=== PATIENT | female | born 1930 | race Two or more races ===

== ENCOUNTER → 2017-03-14 | Outpatient (REF) | payer MEDICARE, OTHER | LOC: M SMT 16:54 | PROVIDERS: ATTEND Nurse Practitioner Women's Health | DX: N39.41 Urge incontinence (principal) | CPT/HCPCS: 81001; 87086; G0463 ==

== ENCOUNTER → 2017-04-15 | Outpatient (REF) | payer MEDICARE ==
[~2017-04-15] MED LIST: AMLO10TA2 PO; BIOT1CAP2 PO; BREO1INH3 INH; CIPR500T3 PO; CURCPOW XX; MILKPOW XX; VITA200015 PO; VITA200016 PO
== END ==
LOC: M SMT 17:11
PROVIDERS: ATTEND Urology
DX: N39.41 Urge incontinence (principal)

== ENCOUNTER → 2017-04-30 | Day surgery (SDC) | payer MEDICARE ==
[~2017-04-30] VITALS: Ht 162.6 cm; Wt 77.1 kg
[~2017-04-30] MED LIST changes: +BOTULINUM INJ 100 UNITS (J0585) As Ordered ONE; +LIDOCAINE 1% MDV 20ML VIAL SC ONE; +LIDOCAINE 2% INJ 100 MG/5 ML SDV (FOR ANES.) As Ordered ONE; +LR 1,000 ML IV ONE; +LR 1,000 ML IV SCH; +MIDAZOLAM INJ 2 MG/2 ML VIAL (J2250) As Ordered ONE; +ONDANSETRON 4MG/2ML VIAL (J2405) As Ordered ONE; +ONDANSETRON 4MG/2ML VIAL (J2405) IV PRN; +PROPOFOL 200 MG/20 ML VIAL As Ordered ONE; +dexameTHASONE 4 MG/ML 1ML VIAL (J1100) As Ordered ONE; +fentaNYL 100 MCG/2 ML INJECTION (J3010) As Ordered ONE; +fentaNYL 100 MCG/2 ML INJECTION (J3010) IV PRN
[2017-04-30 06:58] LABS: INR 0.98
[2017-04-30 09:25] VITALS: BP 170/77
--- NOTE | 2017-05-01 07:35 | RO ---
DATE OF PROCEDURE: 04/30/2017 PREOPERATIVE DIAGNOSIS: Bladder hyperactivity. POSTOPERATIVE DIAGNOSIS: Bladder hyperactivity. PROCEDURE: Cystoscopy, plus 100 units of Botox injection intravesical. SURGEON: Dr. Home Rodriguez [employer]IA PROGRAM DIRECTOR: None. ANESTHESIA: General. COMPLICATIONS: None. ESTIMATED BLOOD LOSS: N/A. HISTORY OF PRESENT ILLNESS: This is an 87-year-old female patient that actually is here due to severe urgency and frequency, bladder hyperactivity. For this reason, she has consented for cystoscopy plus 100 international units of Botox injection in the bladder. PROCEDURE DESCRIPTION: In a patient under general anesthesia in supine modified low lithotomy position, after prepping and draping the area of concern which included the entire genitalia and abdomen, we started by introducing a re Italian cystoscope with a 30 degrees lens under videoscopic guidance. The urethra and bladder neck were totally normal. The ureteral orifices were excreting clear urine. The bladder had no tumors, no stones, no foreign objects. We then proceeded to pass a Laborie endoscopic needle and then place a syringe filled with 100 units of Botox solution. We injected 1 mL of the Botox solution into the posterior bladder wall on the left and the right and also in the dome on the left and the right in lateral munoz. Once we finished injecting, we actually took out the endoscopic needle and drained the bladder and then took the cystoscope out. PLAN: The patient will go home with antibiotics for 7 days and pain medication Tylenol as needed over the counter. She will followup at [facility] in about 3-4 weeks and we can reschedule her for another Botox injection depending on how she does with this one either with 100 or with 200 units of Botox every 6 months.
== END | disposition home or self-care (01) ==
LOC: M SDC 06:13
PROVIDERS: ATTEND Urology
DX: N32.81 Overactive bladder (principal); N39.46 Mixed incontinence; I10 Essential (primary) hypertension; L30.9 Dermatitis, unspecified; J44.9 Chronic obstructive pulmonary disease, unspecified; R06.02 Shortness of breath; Z79.899 Other long term (current) drug therapy; Z78.0 Asymptomatic menopausal state; Z92.3 Personal history of irradiation
CPT/HCPCS: 36415; 52287; 85610; 85730; 86850; 86900; 86901; J0585; J0690; J1100; J2250; J2405; J3010

== ENCOUNTER → 2017-05-16 | Outpatient (REF) | payer MEDICARE ==
[~2017-05-16] MED LIST changes: -BOTULINUM INJ 100 UNITS (J0585) As Ordered ONE; -LIDOCAINE 1% MDV 20ML VIAL SC ONE; -LIDOCAINE 2% INJ 100 MG/5 ML SDV (FOR ANES.) As Ordered ONE; -LR 1,000 ML IV ONE; -LR 1,000 ML IV SCH; -MIDAZOLAM INJ 2 MG/2 ML VIAL (J2250) As Ordered ONE; -ONDANSETRON 4MG/2ML VIAL (J2405) As Ordered ONE; -ONDANSETRON 4MG/2ML VIAL (J2405) IV PRN; -PROPOFOL 200 MG/20 ML VIAL As Ordered ONE; -dexameTHASONE 4 MG/ML 1ML VIAL (J1100) As Ordered ONE; -fentaNYL 100 MCG/2 ML INJECTION (J3010) As Ordered ONE; -fentaNYL 100 MCG/2 ML INJECTION (J3010) IV PRN
== END ==
LOC: M SMT 12:46
PROVIDERS: ATTEND Nurse Practitioner Women's Health
DX: N39.41 Urge incontinence (principal)
CPT/HCPCS: 81001; 87086; G0463

== ENCOUNTER 2018-03-11 07:14 | Day surgery (SDC) | payer MEDICARE ==
[~2018-03-11 07:14] MED LIST changes: -AMLO10TA2 PO; -BIOT1CAP2 PO; -BREO1INH3 INH; -CIPR500T3 PO; -CURCPOW XX; +MIDAZOLAM INJ 2 MG/2 ML VIAL (J2250) As Ordered; -MILKPOW XX; -VITA200015 PO; -VITA200016 PO; +fentaNYL 100 MCG/2 ML INJECTION (J3010) As Ordered
[2018-03-11] MEDS ORDERED: BOTULINUM INJ 100 UNITS (J0585) XX (07:30)
[2018-03-11] MEDS ORDERED: LIDOCAINE 1% MDV 20ML VIAL SQ (07:30)
[2018-03-11] MEDS ORDERED: LR 1,000 ML IV (07:30)
[2018-03-11] MEDS ORDERED: LIDOCAINE 2% INJ 100 MG/5 ML SDV (FOR ANES.) As Ordered (07:47)
[2018-03-11] MEDS ORDERED: PROPOFOL 200 MG/20 ML VIAL As Ordered (07:47)
[2018-03-11] MEDS ORDERED: ONDANSETRON 4MG/2ML VIAL (J2405) As Ordered (08:40)
[2018-03-11] MEDS: BOTULINUM INJ 100 UNITS (J0585) As Ordered (08:45)
== END 2018-03-11 10:03 | disposition home or self-care (01) ==
LOC: M SDC 07:14
DX: N32.81 Overactive bladder (principal); R35.0 Frequency of micturition; I10 Essential (primary) hypertension; J44.9 Chronic obstructive pulmonary disease, unspecified; Z79.899 Other long term (current) drug therapy
CPT/HCPCS: 52287

== ENCOUNTER 2018-07-15 10:31 | Day surgery (SDC) | payer MEDICARE ==
[~2018-07-15 10:31] MED LIST changes: +BOTULINUM INJ 100 UNITS (J0585) XX; +LIDOCAINE 1% SDV 5 ML VIAL SQ; +LIDOCAINE 2% INJ 100 MG/5 ML SDV (FOR ANES.) As Ordered; +ONDANSETRON 4MG/2ML VIAL (J2405) As Ordered; +PROPOFOL 200 MG/20 ML VIAL As Ordered; +dexameTHASONE 4 MG/ML 1ML VIAL (J1100) As Ordered
[2018-07-15] MEDS: LR 1,000 ML IV ×2 (11:13)
[2018-07-15] MEDS ORDERED: ROCURONIUM BROMIDE 50 MG/5 ML VIAL As Ordered ×2 (11:14)
[2018-07-15] MEDS: BOTULINUM INJ 100 UNITS (J0585) As Ordered ×2 (13:44)
[2018-07-15] MEDS ORDERED: PROPOFOL 200 MG/20 ML VIAL As Ordered ×2 (13:46)
[2018-07-15] MEDS ORDERED: PERCOCET 5MG/325MG TAB PO ×2 (14:15)
[2018-07-15] MEDS ORDERED: ONDANSETRON 4MG/2ML VIAL (J2405) IV ×2 (14:15)
[2018-07-15] MEDS ORDERED: LR 1,000 ML IV ×2 (14:15)
== END 2018-07-15 14:36 | disposition home or self-care (01) ==
LOC: M SDC 10:31
DX: N32.81 Overactive bladder (principal); I10 Essential (primary) hypertension; J44.9 Chronic obstructive pulmonary disease, unspecified; Z87.891 Personal history of nicotine dependence; Z85.3 Personal history of malignant neoplasm of breast; Z92.21 Personal history of antineoplastic chemotherapy; Z79.899 Other long term (current) drug therapy
CPT/HCPCS: 52287

== ENCOUNTER → 2019-04-07 | Outpatient (CLI) | payer MEDICARE ==
[~2019-04-07] MED LIST changes: +AMLO10TA5 PO; +BIOT1CAP2 PO; -BOTULINUM INJ 100 UNITS (J0585) XX; +BREO1INH INH; +BREO1INH3 INH; +CIPR500T3 PO; +CURCPOW XX; -LIDOCAINE 1% SDV 5 ML VIAL SQ; -LIDOCAINE 2% INJ 100 MG/5 ML SDV (FOR ANES.) As Ordered; +LOSA25TA14 PO; -MIDAZOLAM INJ 2 MG/2 ML VIAL (J2250) As Ordered; +MILKPOW XX; +MYRB50TA PO; +NORV5TAB PO; -ONDANSETRON 4MG/2ML VIAL (J2405) As Ordered; -PROPOFOL 200 MG/20 ML VIAL As Ordered; +TREL1AER PO; +TYLE650T35 PO; +VITA200015 PO; +VITA200016 PO; -dexameTHASONE 4 MG/ML 1ML VIAL (J1100) As Ordered; -fentaNYL 100 MCG/2 ML INJECTION (J3010) As Ordered
--- NOTE | 2019-04-13 16:22 | SLEEPHOME ---
DATE OF PROCEDURE: 04/07/2019 ORDERED BY: Quan Dietz Diagnostic home sleep testing was performed due to concern for the obstructive sleep apnea syndrome in this patient with a history of snoring, fatigue, and comorbidities of obstructive lung disease. For testing a nocturnal T3 respiratory monitoring device was used. Continuous record was made of pulse, oxygen saturation, airflow, chest, abdominal strain, and body position. 10 hours of data were reviewed. There were 7 hours and 34 minutes marked as time in bed. During the interval marked time in bed, there were 92 respiratory events identified of 10 seconds in duration or greater for a respiratory event index of 12.1. The events were primarily obstructive. Baseline pulse rate 97. Pulse rate range 118 down to 25. Baseline saturation 90%. Lowest oxygen saturation recorded 80%. Testing was performed in both supine and nonsupine positions. IMPRESSION: Abnormal home sleep testing with repetitive respiratory events and oxygen desaturations to 80% with a respiratory event index of 12.1 is consistent with the obstructive sleep apnea syndrome. RECOMMENDATIONS: The patient should be referred for formal sleep evaluation.
== END ==
LOC: M SLEEP HO 10:48
PROVIDERS: ATTEND Nurse Practitioner Family
DX: J44.9 Chronic obstructive pulmonary disease, unspecified (principal); R53.83 Other fatigue; R06.83 Snoring

== ENCOUNTER 2019-05-22 09:29 | Day surgery (SDC) | payer MEDICARE ==
[~2019-05-22] VITALS: Ht 172.7 cm; Wt 80.9 kg
[~2019-05-22 09:29] MED LIST changes: +BOTULINUM INJ 100 UNITS (J0585) IM ONE; +LR 1,000 ML IV ONE
[2019-05-22] MEDS ORDERED: BOTULINUM INJ 100 UNITS (J0585) As Ordered ONE (12:23)
[2019-05-22] MEDS ORDERED: ONDANSETRON 4MG/2ML VIAL (J2405) As Ordered ONE (12:44)
[2019-05-22] MEDS ORDERED: fentaNYL 100 MCG/2 ML INJECTION (J3010) As Ordered ONE (12:44)
[2019-05-22] MEDS ORDERED: PROPOFOL 200 MG/20 ML VIAL As Ordered ONE (12:44)
[2019-05-22] MEDS ORDERED: LIDOCAINE 2% INJ 100 MG/5 ML SDV (FOR ANES.) As Ordered ONE (12:44)
[2019-05-22] MEDS ORDERED: METOPROLOL 5 MG/5 ML VIAL As Ordered ONE (12:45)
[2019-05-22] MEDS ORDERED: LIDOCAINE 2% 5ML JELLY UROJET As Ordered ONE (12:49)
[2019-05-22 13:55] VITALS: BP 187/90
--- NOTE | 2019-05-26 20:25 | RO ---
DATE OF PROCEDURE: 05/22/2019 PREPROCEDURE DIAGNOSIS: Overactive bladder. POSTPROCEDURE DIAGNOSIS: Overactive bladder. PROCEDURE: Cystoscopy with bladder Botox injections. SURGEON: Dr. Geovany Joseph ORTHOPEDIC RADIOLOGIC TECHNOLOGIST: None. ANESTHESIA: Monitored anesthesia care (MAC). OPERATIVE INDICATIONS: This is an 89-year-old female with overactive bladder refractory to oral medical therapy. She is here today for bladder Botox injections. DESCRIPTION OF PROCEDURE: The patient was brought to the operating room and MAC anesthesia was administered. Prophylactic antibiotics were infused. She was then placed in the dorsal lithotomy position and prepped and draped in the usual sterile fashion. A rigid cystoscope was then inserted into the urethral meatus and advanced to the bladder. Of note, there were no bladder abnormalities seen. At this point, I injected a total of 100 units of Botox, which was reconstituted in 10 mL of saline into her bladder in approximately 20 different locations. I made sure not to inject near the ureteral orifices. Once done with the Botox injections, there was very minimal bleeding. The bladder was then emptied of all fluid and this marked the conclusion of the procedure. The patient was then taken out of the dorsal lithotomy position, awakened from anesthesia and transported to the recovery room in stable condition. Estimated blood loss: 5 mL. Complications: None. Specimens: None. PLAN: The patient will followup in the clinic in a few weeks for a postoperative visit. SHAN
== END 2019-05-22 14:05 | disposition home or self-care (01) ==
LOC: M SDC 09:29
PROVIDERS: ATTEND Urology
DX: N32.81 Overactive bladder (principal); N39.41 Urge incontinence; I10 Essential (primary) hypertension; J44.9 Chronic obstructive pulmonary disease, unspecified; Z85.3 Personal history of malignant neoplasm of breast; Z87.891 Personal history of nicotine dependence; Z92.3 Personal history of irradiation; Z79.899 Other long term (current) drug therapy
CPT/HCPCS: 52287; J0585; J0690; J2405; J3010

== ENCOUNTER → 2019-06-10 | Outpatient (REF) | payer MEDICARE ==
[~2019-06-10] MED LIST changes: -BOTULINUM INJ 100 UNITS (J0585) IM ONE; -LR 1,000 ML IV ONE
[2019-06-10 14:22] LABS: APPEARANCE, URINE MANUAL HAZY (CLEAR); COLOR, URINE MANUAL YELLOW (YELLOW)
[2019-06-10 14:23] LABS: BILIRUBIN, URINE MANUAL NEGATIVE (NEGATIVE); BLOOD URINE MANUAL NEGATIVE (NEGATIVE); GLUCOSE, URINE (UA) MANUAL NEGATIVE (NEGATIVE); KETONE, URINE MANUAL NEGATIVE (NEGATIVE); LEUKOCYTE ESTERASE, URINE MAN TRACE (NEGATIVE); NITRITE, URINE MANUAL NEGATIVE (NEGATIVE); PROTEIN, URINE MANUAL 1+ mg/dL (NEGATIVE); SPECIFIC GRAVITY,URINE MANUAL 1.015 (1.002-1.035); UROBILINOGEN, URINE MANUAL NORMAL (NORMAL)
[2019-06-10 14:39] LABS: CALCIUM OXALATE CRYSTALS,URINE MOD AMOUNT /hpf; SQUAMOUS EPITHELIAL CELL URINE MOD AMOUNT /hpf (SMALL AMT); TRANSITIONAL EPI CELLS, URINE SMALL AMOUNT /hpf
[2019-06-10 14:40] LABS: BACTERIA, URINE SMALL AMOUNT; HYALINE CAST, URINE 0-1 /lpf (0-1)
== END ==
LOC: M SMT 13:27
PROVIDERS: ATTEND Nurse Practitioner Women's Health
DX: N39.41 Urge incontinence (principal)

== ENCOUNTER → 2021-03-10 | Outpatient (CLI) | payer OTHER ==
[~2021-03-10] MED LIST changes: +ACET650T61 PO; -AMLO10TA5 PO; +AMLO1TAB25 PO; -TYLE650T35 PO
--- NOTE | 2021-03-10 16:21 | REPVR ---
PROCEDURE INFORMATION: Exam: MR Head Without Contrast Exam date and time: 03/10/2021 3:05 PM Age: 89 years old Clinical indication: Altered mental status/memory loss; Confusion or disorientation; Additional info: TIA TECHNIQUE: Imaging protocol: MR of the head without contrast. COMPARISON: No relevant prior studies available. FINDINGS: Brain: There is no restricted diffusion to suggest acute infarction. No acute intracranial hemorrhage or prior microhemorrhages. Increased signal intensity of the deep and subcortical white matter on the FLAIR and T2 weighted sequences is most consistent with microangiopathy with similar patchy findings in the adán. No mass. Cerebral ventricles: The ventricles appear mildly enlarged, but not out of proportion to the degree of parenchymal volume loss. Bones/joints: Unremarkable. Paranasal sinuses: There is no significant mucoperiosteal thickening or air-fluid levels in the visualized portion of the paranasal sinuses. Mastoid air cells: Mastoid air cells appear relatively clear. Orbital cavity: Unremarkable. Soft tissues: Unremarkable. IMPRESSION: No acute intracranial findings specifically no evidence of acute intracranial hemorrhage or infarction. Electronically signed by: Kimberley Plascencia On 03/10/2021 16:21:04 PM
== END ==
LOC: M PLARAD 15:04
PROVIDERS: ATTEND Nurse Practitioner Family
DX: G45.9 Transient cerebral ischemic attack, unspecified (principal)